=== PATIENT | male | born 1955 | race Caucasian/White ===

== ENCOUNTER 2024-09-21 06:48 | Day surgery (SDC) | payer OTHER ==
[2024-09-19 13:42] LABS: Absolute Basophils 0.1 K/uL (0-0.5); Absolute Eosinophils 0.6 K/uL (0-0.5); Absolute Lymphocytes (CBC) 3.5 K/uL (0.7-4.9); Absolute Monocytes 0.8 K/uL (0.1-1.3); Absolute Neutrophil 4.4 K/uL (1.8-8.0); Basophils % 0.6 % (0-1.3); Eosinophils % 6.3 % (0-4.4); Hematocrit 40.9 % (39.6-49.0); Hemoglobin 14.5 g/dL (13.6-17.9); Lymphocytes % 37.7 % (15.3-44.8); MCH 31.3 pg (27.0-35.0); MCHC 35.4 g/dL (32.0-36.0); MCV 88.5 fL (80-100); Monocytes % 8.2 % (3.3-12.3); Neutrophils % 47.2 % (41.7-73.7); Platelets 227 thou/uL (152-406); RBC Red Blood Cell Count 4.63 M/uL (4.33-5.43); Red Cell Distribution Width 13.2 % (12.1-15.2)
[2024-09-19 13:57] LABS: Anion Gap 9.9 mEq/L (5.0-15.0); Potassium 3.9 mEq/L (3.5-5.1)
[2024-09-21] MEDS: NA CHLORIDE 0.9% 1,000 ML ONE (07:30)
[2024-09-21] MEDS ORDERED: LIDOCAINE 1% MPF 5 ML VIAL ONE (07:31)
[2024-09-21] MEDS ORDERED: propofoL 200 MG/20 ML VIAL IV ONE ×2 (07:31→08:51)
[2024-09-21] MEDS ORDERED: EPHEDRINE SULF 50 MG/ML VIAL ONE (07:32)
[2024-09-21] MEDS ORDERED: SIMETHICONE 40 MG/ 0.6 ML ONE (07:37)
[2024-09-21 09:26] VITALS: TEMP 98.1; O2SAT 99
[2024-09-21 09:29] VITALS: BP 125/65
--- NOTE | 2024-09-24 17:02 | EKG ---
Test Date: 2024-09-19 Test Time: 13:20:55 Line Camera Operator: DIANA MEASUREMENT RESULTS: Intervals: Rate: 61 AK: 190 QRSD: 90 QT: 408 QTc: 410 [place]: P: 43 AK: 190 QRS: 12 T: 49 INTERPRETIVE STATEMENTS: Normal sinus rhythm Low voltage QRS Borderline ECG No previous ECG available for comparison Electronically Signed On 09-24-24 16:56:19 CDT by Leif Sheriff
== END 2024-09-21 09:25 | disposition home or self-care (01) ==
LOC: OR 06:48
PROVIDERS: ATTEND Surgery
PROC: 0DBL8ZX Excision of Transverse Colon, Via Natural or Artificial Opening Endoscopic, Diagnostic (ICD-10-PCS; 2024-09-21)
PROC: 0DBN8ZX Excision of Sigmoid Colon, Via Natural or Artificial Opening Endoscopic, Diagnostic (ICD-10-PCS; 2024-09-21)
PROC: 0DBM8ZX Excision of Descending Colon, Via Natural or Artificial Opening Endoscopic, Diagnostic (ICD-10-PCS; 2024-09-21)
PROC: 0DBH8ZX Excision of Cecum, Via Natural or Artificial Opening Endoscopic, Diagnostic (ICD-10-PCS; principal; 2024-09-21 08:00)
DX: Z12.11 Encounter for screening for malignant neoplasm of colon (principal); D12.3 Benign neoplasm of transverse colon; K63.5 Polyp of colon; K64.8 Other hemorrhoids
CPT/HCPCS: 93005; 85025; 80048; 36415; 82947; 88305; 45385; J2704 ×2; J2003; J7030